=== PATIENT | female | born 1995 | race Two or more races ===

== ENCOUNTER 2018-02-05 13:22 | Emergency (ER) | payer SELFPAY ==
[~2018-02-05] VITALS: Ht 167.6 cm; Wt 49.9 kg
--- NOTE | 2018-02-05 13:56 | Emergency Room Report ---
History of Present Illness General Chief Complaint: Overdose Source: EMS Present Illness Allergies: Coded Allergies: UNABLE TO ASSESS (Unverified , 02/05/18) Patient History Last Menstrual Period: 02/03/18 Nursing Documentation-[facility] Past Medical History: No Stated History Physical Exam Vital Signs Date Time Temp Pulse Resp B/P (MAP) Pulse Ox O2 Delivery O2 Flow Rate FiO2 02/05/18 13:21 98.5 122 18 116/72 98 Room Air 98.4 Medical Decision Making Last Vital Signs Date Time Temp Pulse Resp B/P (MAP) Pulse Ox O2 Delivery O2 Flow Rate FiO2 02/05/18 13:21 98.5 122 18 116/72 98 Room Air 98.4 Scripts No Active Prescriptions or Reported Meds Jey Mcmillan MD Feb 05, 2018 13:56
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
[2018-02-05 15:00] VITALS: BP 116/72
== END 2018-02-05 15:00 | disposition home or self-care (01) ==
LOC: EDBD 13:22 → EMR 14:00
DX: R41.0 Disorientation, unspecified (principal); T50.905A Adverse effect of unspecified drugs, medicaments and biological substances, initial encounter; Y92.9 Unspecified place or not applicable
CPT/HCPCS: 99283